=== PATIENT | female | born 1955 | race Caucasian/White ===

== ENCOUNTER 2018-02-22 12:26 | Emergency (ER) | payer BC ==
[~2018-02-22] VITALS: Ht 165.1 cm; Wt 88.5 kg
[2018-02-22 12:50] VITALS: BP 161/81
--- NOTE | 2018-02-22 13:13 | PHYS DOC ---
Past Medical History Past Medical History: Arthritis Additional Past Medical Histor: chronic back pain Past Surgical History: Other Additional Past Surgical Histo: shoulder and knee Alcohol Use: Rarely Drug Use: None Adult General Chief Complaint Chief Complaint: Neck Pain HPI HPI 62-year-old female presents to ER with complaints of left side neck and upper back pain which started yesterday. Patient denies any injury or fall. Patient reports she does have chronic back pain and is on daily Celebrex and amitriptyline. Patient reports she also has a emergency box at home for chronic pain and took 2 doses of her Flexeril last dose at 12 PM today. 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 Patient denies any numbness or tingling, swelling, or skin discoloration. Pt reports she has had headache on lt side of face when pain increases. She denies confusion, dizziness, or confusion. Review of Systems Review of Systems Constitutional: Denies fever or chills [] Eyes: Denies change in visual acuity, redness, or eye pain [] HENT: Denies nasal congestion or sore throat [] Respiratory: Denies cough or shortness of breath [] Cardiovascular: No additional information not addressed in HPI [] GI: Denies abdominal pain, nausea, vomiting, bloody stools or diarrhea [] : Denies dysuria or hematuria [] Musculoskeletal: Denies back pain or joint pain [] Integument: Denies rash or skin lesions [] Neurologic: Denies headache, focal weakness or sensory changes [] Endocrine: Denies polyuria or polydipsia [] All other systems were reviewed and found to be within normal limits, except as documented in this note. Current Medications Current Medications Current Medications Medications (Trade) Dose Ordered Sig/Krupa Start Time Stop Time Status Last Admin Dose Admin Acetaminophen/ Hydrocodone Bitart (Lortab 5/325) 1 tab 1X ONCE 02/22/18 13:15 02/22/18 13:16 DC 02/22/18 14:09 1 TAB Lidocaine (Lidoderm) 1 patch 1X ONCE 02/22/18 14:00 02/22/18 14:05 DC 02/22/18 14:08 1 PATCH Allergies Allergies Allergies Coded Allergies Type Severity Reaction Last Updated Verified Sulfa (Sulfonamide Antibiotics) Allergy Intermediate 9/27/18 Yes Physical Exam Physical Exam Constitutional: Well developed, well nourished, no acute distress, non-toxic appearance. [] HENT: Normocephalic, atraumatic, bilateral external ears normal, oropharynx moist, no oral exudates, nose normal. [] Eyes: PERRLA, EOMI, conjunctiva normal, no discharge. [] Neck: Normal range of motion, no tenderness, supple, no stridor. [] Cardiovascular:Heart rate regular rhythm, no murmur [] Lungs & Thorax: Bilateral breath sounds clear to auscultation [] Abdomen: Bowel sounds normal, soft, no tenderness, no masses, no pulsatile masses. [] Skin: Warm, dry, no erythema, no rash. [] Back: No tenderness, no CVA tenderness. [] Extremities: No tenderness, no cyanosis, no clubbing, ROM intact, no edema. [] Neurologic: Alert and oriented X 3, normal motor function, normal sensory function, no focal deficits noted. [] Psychologic: Affect normal, judgement normal, mood normal. [] Current Patient Data Vital Signs Vital Signs Date Time Temp Pulse Resp B/P (MAP) Pulse Ox O2 Delivery O2 Flow Rate FiO2 02/22/18 12:50 98.3 88 20 161/81 (107) 98 Room Air 98.3 EKG EKG [] Radiology/Procedures Radiology/Procedures [] Course & Med Decision Making Course & Med Decision Making 1430: On reevaluation patient reports she feels comfortable with home discharge at this time as symptoms have improved after Lidoderm patch and dose of [place]. Patient was placed in a sling which she also reports improved her left side neck pain. She remains neuro and vascular intact in bilateral upper extremities and in no visible distress at this time. Education provided on signs symptoms to return to ER for and patient was advised if symptoms persist she is to follow up with primary care physician and/or orthopedics for further evaluation. Discharge instructions discussed and patient verbalized understanding and is agreeable w/plan. Will provide pt with sm. quantity of [place]- with education on fall risks and no driving/etoh drinking while taking. Dragon Disclaimer Dragon Disclaimer This electronic medical record was generated, in whole or in part, using a voice recognition dictation system. Departure Departure Impression: Primary Impression: Cervical radiculopathy Disposition: HOME, SELF-CARE Condition: STABLE Referrals: APPL,KAYLEY A MD (PCP) Patient Instructions: Cervical Radiculopathy Additional Instructions: Continue your home Flexeril as prescribed. Avoid driving or alcohol intake while taking Flexeril and/or [place]. Follow-up with primary doctor or orthopedic doctor if symptoms continue- with concerns or worsening symptoms return to ER. Scripts Hydrocodone/Apap 5-325 (NORCO 5-325 TABLET) 1 Each Tablet 1 TAB PO PRN Q6HRS, #10 TAB 0 Refills Prov: MISSY DENISE APRN 02/22/18 MISSY DENISE APRN Feb 22, 2018 13:13
[2018-02-22] MEDS: LIDOCAINE (700MG/PATCH) PATCH. TD ONE (14:08)
[2018-02-22] MEDS: HYDROcodone/APAP 5/325MG 1 TAB TABLET PO ONE (14:09)
[2018-02-22] MEDS ORDERED: HYDR-971 PO (14:36)
== END 2018-02-22 14:57 | disposition home or self-care (01) ==
LOC: ER 12:26
DX: M54.12 Radiculopathy, cervical region (principal); G89.29 Other chronic pain; M19.90 Unspecified osteoarthritis, unspecified site; R51 Headache; Z88.2 Allergy status to sulfonamides
CPT/HCPCS: 99283